=== PATIENT | female | born 1965 | race Caucasian/White ===

== ENCOUNTER → 2024-04-25 07:01 | Outpatient (REF) | payer OTHER, SELFPAY | LOC: RAD 07:01 | PROVIDERS: ATTENDING PHYSICIAN Advanced Practice Midwife; FAMILY PHYSICIAN Student in an Organized Health Care Education/Training Program | DX: C64.9 Malignant neoplasm of unspecified kidney, except renal pelvis (principal) | CPT/HCPCS: 76775 ==

== ENCOUNTER → 2024-06-10 08:49 | Outpatient (REF) | payer OTHER, SELFPAY | LOC: WDC 08:49 | PROVIDERS: ATTENDING PHYSICIAN Obstetrics & Gynecology Gynecology; FAMILY PHYSICIAN Student in an Organized Health Care Education/Training Program | DX: Z12.31 Encounter for screening mammogram for malignant neoplasm of breast (principal); Z78.0 Asymptomatic menopausal state | CPT/HCPCS: 77063; 77067; 77080 ==

== ENCOUNTER 2024-10-08 06:25 | Day surgery (SDC) | payer OTHER, SELFPAY | END 2024-10-08 12:10 | disposition home or self-care (01) | LOC: GI 06:25 | PROVIDERS: ATTENDING PHYSICIAN Internal Medicine | DX: Z12.11 Encounter for screening for malignant neoplasm of colon (principal); K64.9 Unspecified hemorrhoids | CPT/HCPCS: G0121 ==

== ENCOUNTER 2024-11-30 06:59 | Emergency (ER) | payer OTHER, SELFPAY ==
[2024-11-30 07:05] VITALS: BP 199/120
[2024-11-30 07:33] VITALS: BMI 27.2
--- NOTE | 2024-11-30 07:34 | EDRN ---
Pt had a slip and fall this am backwards onto her buttocks, hit back of head. Pt has pain R jar, posterior head w/ bump to head, neck pain, no other pain. Pt took 2 extra strength after it happened. No blood thinners, did not pass out.
[2024-11-30 07:39] VITALS: BP 154/80
--- NOTE | 2024-11-30 07:47 | ED.GENMED ---
History of Present Illness
General
Chief Complaint: Fall
Source: patient
Time Seen by Provider: 11/30/24 07:13
History of Present Illness
History of Present Illness:
59-year-old female with past medical history of MS, renal cancer presenting to the emergency department for evaluation after she was taking her dog outside and slipped on ice landing on her buttock and striking the back of her head onto the
pavement. No reported LOC, vomiting, visual changes but patient does have a right posterior headache with hematoma noted in the occipital region. Patient did take 2 Tylenol prior to arrival. Denies any use of anticoagulants. Denies any extremity
related injuries. No other concerns at this time.
Past History
Past History
ED Past Medical History: Cancer and Other (MS)
ED Past Surgical History: Gynecological and Other
Social History
Tobacco: Non-smoker
Alcohol: None
Drug: None
Personal:
Living: with family
Employment: Employed
Family History
Family History: Other (Noncontributory)
Review of Systems
Review of Systems
All Other Systems: ROS reviewed and negative except as documented in HPI and ROS
Phy Exam
Physical Exam
Physical Exam:
GENERAL: Alert , in no apparent distress
EYE: conjunctiva clear, pupils 4 mm bilateral
Head: Approximately 1-1/2 cm palpable hematoma to the right occiput. No breaks in the skin
NECK: Supple, no midline tenderness
ENT: mmm. No dental injuries. Able to open and close jaw without pain
LUNGS: no acute respiratory distress
NEUROLOGICAL: Alert and oriented
SKIN: Warm and dry, skin intact.
MUSCULOSKELETAL: well perfused. Moves all extremities
PSYCH: Normal and appropriate interaction.
Scores
Heart Failure Risk
Heart Failure Risk Score: Not Applicable
Heart Score for Chest Pain Patients
STEMI patient?: Not applicable
Withdrawal Assessment of Alcohol
Withdrawal Assessment Completed?: Not applicable
Course
Orders/Labs/Results
Orders:
Orders
11/30/24 07:46
CT Cervical Spine W/o Iv Contr Urgent
Comment:
Reason For Exam: fall, head/neck injury
CT Head W/o Iv Contrast Urgent
Comment:
Reason For Exam: fall, head injury, left occipital hematoma
Vital Signs
Initial and Last Documented VS:
Initial Vital Signs
Temp Pulse Resp BP Pulse Ox
98.4 F 122 18 199/120 98
11/30/24 07:05 11/30/24 07:05 11/30/24 07:05 11/30/24 07:05 11/30/24 07:05
Last Documented Vital Signs
Temp Pulse Resp BP Pulse Ox
98 F 72 16 138/76 98
11/30/24 08:45 11/30/24 08:45 11/30/24 08:45 11/30/24 08:45 11/30/24 08:45
MDM/Problems Addressed
Differential Diagnosis Includes:
Contusion, intracranial bleeding, calvarial fracture, no symptoms to suggest musculoskeletal injury to periphery
MDM/Problems Addressed:
59-year-old female presenting to the emergency department for evaluation following an accidental slip and fall on the ice resulting in right occipital hematoma. No LOC, vomiting or visual changes. Given the mechanism will obtain a CT of the head
and cervical spine although I am most suspicious for contusion is the most likely diagnosis. Patient declining anything further for pain at this time. She was noted to have significantly elevated blood pressure and tachycardic on arrival however
on repeat these vital signs are much improved
*Radiology
Radiology exam reviewed: radiology read reviewed
*Pulse Oximetry
Patient hypoxic: no
*Critical Care Note
Total Time (30-74mins, 75-104mins- exclusive of procedures): Not Applicable
Patient Management
Escalation/DeEscalation of care consider admission/obs:
Patient's CAT scan without any acute abnormalities. Advised continued NSAIDs/Tylenol for headache as needed, ice and elevation of the head to help with the swelling. Patient aware of return precautions.
ED Attending Note
-
Portions of this chart may have been created with voice recognition software.� Occasional wrong word or��sound alike� substitutions may have occurred due to the inherent limitations of voice recognition software.
Discharge Plan
Departure
Patient Disposition: Home (Routine Discharge)
Date of Disposition: 11/30/24
Time of Disposition: 09:09
Patient with high blood pressure during this ER visit?: Yes
Discharge Problem:
Accidental fall, Contusion of head
Instructions: Head Injury in Adults (DC)
Prescriptions:
No Action
omeprazole 40 MG capsule,delayed release(DR/EC)
40 mg PO DAILY
glatiramer [Copaxone] 40 MG/ML syringe
40 mg SQ .3XWEEKLY
dicyclomine 20 MG tablet
20 mg PO QIDPRN PRN (Reason: spasm) Qty: 10 0RF
omeprazole 20 MG capsule,delayed release(DR/EC)
20 mg PO DAILY Qty: 20 0RF
sucralfate 1 GM/10 ML suspension
1 gm PO QID 10 Days 0RF
hydrocodone-acetaminophen 1 TABLET tablet
1 tab PO Q4HPRN PRN (Reason: pain) Qty: 10 0RF
methylprednisolone [Medrol (Chet)] 4 MG tablets,dose pack
4 tab PO . DIRECT Qty: 1 0RF
Referrals:
Tracey Sheridan MD [Family Provider] -
Interventions
Interventions:
*Risk Screen - Suicide Last Done: 11/30/24 07:05
*General Assessment Last Done: 11/30/24 07:36
*Neglect/Abuse Screening Last Done: 11/30/24 07:05
ED- Fall Risk Assessment Last Done: 11/30/24 07:36
*ED COVID-19 Vaccine History Last Done: 11/30/24 07:36
*Nursing Disposition Last Done: 11/30/24 09:18
ED-Musculoskeletal Assessment Last Done: 11/30/24 07:36
ED- Neurological Assessment Last Done: 11/30/24 07:36
ED-Skin Assessment Last Done: 11/30/24 07:36
Discharge Date and Time
Discharge Date/Time: 11/30/24 09:20
Print Language: [email or web address]
[2024-11-30 08:45] VITALS: BP 138/76
== END 2024-11-30 09:20 | disposition home or self-care (01) ==
LOC: EMR 06:59
PROVIDERS: EMERGENCY PHYSICIAN Student in an Organized Health Care Education/Training Program; FAMILY PHYSICIAN Student in an Organized Health Care Education/Training Program
DX: S00.03XA Contusion of scalp, initial encounter (principal); W00.0XXA Fall on same level due to ice and snow, initial encounter; Z85.528 Personal history of other malignant neoplasm of kidney
CPT/HCPCS: 99284; 70450; 72125

== ENCOUNTER → 2025-03-05 06:47 | Outpatient (REF) | payer OTHER, SELFPAY ==
[2025-03-05 07:41] LABS: % Basophils 2.8 % (0-2); % Eosinophils 4.9 % (0-6); % Immature Granulocytes 0.3 % (0-0.5); % Lymphocytes 30.2 % (20.5-51.1); % Monocytes 11.1 % (1.7-9.3); % Neutrophils 50.7 % (42.2-75.2); Absolute Basophils 0.1 10^3/uL (0-0.2); Absolute Eosinophils 0.2 10^3/uL (0-0.7); Absolute Monocytes 0.4 10^3/uL (0.1-0.6); Absolute Neutrophils 1.7 10^3/uL (1.4-6.5); Hematocrit 37.9 % (37.0-47.0); Hemoglobin 12.5 g/dL (12.0-16.0); Mean Corpuscular Hgb 29.2 pg (27.0-31.0); Mean Corpuscular Volume 88.6 fL (81.0-99.0); Mean Platelet Volume 12.5 fL (7.4-10.4); Nucleated Red Blood Cells % 0 %; Platelet Count 162 10^3/uL (130-400); Red Blood Cell Count 4.28 10^6/uL (4.20-5.40); Red Cell Dist. Width 13.2 % (11.5-14.5); White Blood Cell Count 3.3 10^3/uL (4.8-10.8)
[2025-03-05 08:09] LABS: ALT (SGPT) 19 U/L (0-35); AST (SGOT) 28 U/L (14-36); Albumin 4.6 g/dl (3.5-5.0); Alkaline Phosphatase 57 U/L (38-126); Blood Urea Nitrogen 11 mg/dl (7-17); Carbon Dioxide 24 mmol/L (22-30); Chloride 107 mmol/L (98-107); Glucose 101 mg/dl (70-99); HDL Cholesterol 92 mg/dl; LDL Cholesterol, Calculated 89 mg/dl; Potassium 4.5 mmol/L (3.5-5.1); Sodium 138 mmol/L (135-145); Total Bilirubin 0.8 mg/dl (0.2-1.3); Total Cholesterol 194 mg/dl (50-199); Total Protein 6.8 g/dl (6.3-8.2); Triglyceride 68 mg/dl (10-149); Very Low Density Lipoprotein 13 mg/dl (0-30); eGFR > 60.00
[2025-03-05 08:34] LABS: TSH Reflex To Free T4 1.14 uIU/ml (0.47-4.68)
== END ==
LOC: REG 06:47
PROVIDERS: ATTENDING PHYSICIAN Specialist; FAMILY PHYSICIAN Student in an Organized Health Care Education/Training Program
DX: G35 Multiple sclerosis (principal); Z00.00 Encounter for general adult medical examination without abnormal findings; Z85.528 Personal history of other malignant neoplasm of kidney; E78.00 Pure hypercholesterolemia, unspecified; I25.10 Atherosclerotic heart disease of native coronary artery without angina pectoris; G47.19 Other hypersomnia
CPT/HCPCS: 80053; 80061; 84443; 85025

== ENCOUNTER → 2025-03-27 10:19 | Outpatient (REF) | payer OTHER, SELFPAY | LOC: DHSLP 10:19 | PROVIDERS: ATTENDING PHYSICIAN Student in an Organized Health Care Education/Training Program | DX: G47.30 Sleep apnea, unspecified (principal); R06.83 Snoring | CPT/HCPCS: 95800 ==

== ENCOUNTER → 2025-05-27 10:08 | Outpatient (REF) | payer OTHER, SELFPAY ==
[2025-05-27 11:18] LABS: Hematocrit 39.6 % (37.0-47.0); Hemoglobin 13.1 g/dL (12.0-16.0); Mean Corp Hgb Conc. 33.1 g/dL (33.0-37.0); Mean Corpuscular Volume 86.8 fL (81.0-99.0); Nucleated Red Blood Cells % 0 %; Platelet Count 180 10^3/uL (130-400); Red Cell Dist. Width 13.4 % (11.5-14.5)
[2025-05-27 11:51] LABS: ALT (SGPT) 17 U/L (0-35); AST (SGOT) 25 U/L (14-36); Albumin 4.7 g/dl (3.5-5.0); Alkaline Phosphatase 52 U/L (38-126); Blood Urea Nitrogen 15 mg/dl (7-17); Calcium 9.9 mg/dl (8.4-10.2); Carbon Dioxide 26 mmol/L (22-30); Chloride 106 mmol/L (98-107); Glucose 93 mg/dl (70-99); Potassium 3.9 mmol/L (3.5-5.1); Sodium 135 mmol/L (135-145); Total Protein 7.4 g/dl (6.3-8.2); eGFR > 60.00
== END ==
LOC: REG 10:08
PROVIDERS: ATTENDING PHYSICIAN Specialist; FAMILY PHYSICIAN Student in an Organized Health Care Education/Training Program
DX: G35 Multiple sclerosis (principal)
CPT/HCPCS: 36415; 80053; 85025

== ENCOUNTER → 2025-06-11 08:09 | Outpatient (REF) | payer OTHER, SELFPAY | LOC: WDC 08:09 | PROVIDERS: ATTENDING PHYSICIAN Obstetrics & Gynecology Gynecology; FAMILY PHYSICIAN Student in an Organized Health Care Education/Training Program | DX: Z12.31 Encounter for screening mammogram for malignant neoplasm of breast (principal) | CPT/HCPCS: 77063; 77067 ==

== ENCOUNTER → 2025-08-18 13:39 | Outpatient (REF) | payer OTHER, SELFPAY | LOC: WDC 13:39 | PROVIDERS: ATTENDING PHYSICIAN Obstetrics & Gynecology Gynecology; FAMILY PHYSICIAN Student in an Organized Health Care Education/Training Program | DX: R92.2 Inconclusive mammogram (principal) | CPT/HCPCS: 76641 ==